=== PATIENT | female | born 1950 | race Caucasian/White ===

== ENCOUNTER 2025-02-24 08:05 | Day surgery (SDC) | payer MEDICARE, OTHER, SELFPAY ==
[2025-02-23 12:25] VITALS: BMI 28.2
--- NOTE | 2025-02-24 07:27 | EXP.HP ---
History of Present Illness *Admission Date: 02/24/25 *Reason for visit:: Personal history of adenomatous colon polyps *History of present illness: Mrs. Escalante is a 74-year-old female who is here for personal history of adenomatous colon polyps. The examination is deemed medically necessary for surveillance/screening colonoscopy. The patient has been seen, interviewed and examined prior to the procedure by both myself and the anesthesia provider. [facility] Disclaimer: The information contained in this section may have been updated after the patient was seen, as this information can be updated by other users. Medical History (Updated 02/24/25 @ 10:32 by Calvin Simon II, MD) Arthritis Spinal stenosis Cervical cancer Kidney stone Hyperlipidemia Hypertension Surgical History H/O blepharoplasty Hx of cataract surgery Hx of lithotripsy History of carpal tunnel surgery History of removal of ovarian cyst History of hysterectomy Family History Other Bladder cancer Diabetes Heart attack Heart valve disease Hypertension Social History (Updated 02/24/25 @ 08:47 by Zaki Lopez CRNA) Smoking Status: Never smoker alcohol intake: never substance use type: denies use current occupational status: retired Travel in the last 8 weeks?: None Have you lived/traveled outside [place] in past 30 days?: No Contact w/someone who lives/traveled outside [place] past 30 days?: No Exposure to someone with infectious disease in past 14 days?: No Do you have a fever (greater than 100.4 F or 38 C)?: No Have you tested positive for COVID-19?: No Exposed to someone with COVID-19 in past 14 days?: No Do you have a sore throat?: No Do you have a cough?: No Do you have any weakness?: No Are you experiencing any nausea/vomitting?: No Do you have any diarrhea?: No Are you experiencing any unusual bleeding?: No Do you have any muscle aches/pain?: No Do you have any abdominal pain?: No Are you experiencing loss of taste or smell?: No Review of Systems Review of Systems Review of systems (narrative): Negative *Cardiovascular Comments: Negative *Gastrointestinal Comments: Negative *Genitourinary Comments: Negative *Musculoskeletal Comments: Negative *Neurologic Comments: Negative Meds Home Medications and Allergies Home Medications ?Medication ?Instructions ?Recorded ?Confirmed ?Type sodium,potassium,mag sulfates 17.5 See Rx Instructions PO .COMPLEX 02/08/25 Rx gram-3.13 gram-1.6 gram oral soln #354 mL (Suprep Bowel Prep Kit) aspirin 81 mg capsule 81 mg PO DAILY 02/23/25 02/24/25 History atorvastatin 10 mg tablet 10 mg PO DAILY 02/23/25 02/24/25 History lisinopril 30 mg tablet 30 mg PO DAILY 02/23/25 02/24/25 History multivitamin 1 cap PO DAILY 02/23/25 02/24/25 History omega-3 fatty acids 2,000 mg PO BID 02/23/25 02/24/25 History psyllium husk 0.4 gram capsule 0 g PO DAILY 02/23/25 02/24/25 History (Fiber (psyllium husk)) New Prescriptions to Start Prescriptions: Allergies Allergy/AdvReac Type Severity Reaction Status Date / Time No Known Allergies Allergy Verified 02/24/25 08:28 Exam Data for Last 24 hours I & O for Last 24 hours: Intake & Output 02/21/25 02/22/25 02/23/25 02/24/25 23:59 23:59 23:59 23:59 Weight 135 lb *Routine HEENT Exam Head: Present normocephalic Eye: Present EOMI and PERRL ENT: Present mucous membranes moist *Routine Neck Exam Neck: Present supple *Routine Respiratory Exam Respiratory: Present CTA bilaterally *Routine Cardiovascular Exam Cardiovascular: Present RRR *Routine Abdominal Exam Abdominal: Present soft and normoactive bowel sounds; Absent tenderness *Routine Rectal Exam Rectal:: deferred *Routine Genitalia Exam Genitalia:: deferred *Routine Extremities Exam Extremities: Absent cyanosis, clubbing or edema *Routine Skin Exam Skin: Present warm; Absent rash *Routine Neurological Exam Neurological: Present alert and oriented X3 Assessment and Plan *Assessment and plan (1) Personal history of adenomatous and serrated colon polyps: Status: Acute Category: Medical Code(s): Z86.0101 - Personal history of adenomatous and serrated colon polyps Plan A/P: 1. Personal history of adenomatous colon polyps is the preprocedural diagnosis. The patient will be anesthetized/sedated using MAC sedation. The patient has been seen and examined. Cardiac and lung assessment prior to the examination is stable. Proceed with planned screening/surveillance colonoscopy.
[2025-02-24 08:32] VITALS: BP 133/76; PULSE 94; RESP 17; TEMP 36.3; O2SAT 97
--- NOTE | 2025-02-24 08:47 | P.PNANES_ITS ---
[facility] Disclaimer: The information contained in this section may have been updated after the patient was seen, as this information can be updated by other users. Medical History Arthritis Spinal stenosis Cervical cancer Kidney stone Hyperlipidemia Hypertension Surgical History H/O blepharoplasty Hx of cataract surgery Hx of lithotripsy History of carpal tunnel surgery History of removal of ovarian cyst History of hysterectomy Family History Other Bladder cancer Diabetes Heart attack Heart valve disease Hypertension Social History Smoking Status: Never smoker alcohol intake: never substance use type: denies use current occupational status: retired Travel in the last 8 weeks?: None [facility] Anesthesia Checklist Patient Identification Patient Identification: Arm Band Structural Data Admitted From: Home Planned Operative Procedure/s: Colonoscopy Consent for Planned Operative Procedure(s) Verified: Yes Verified Documents: Surgical Consent and History and Physical NPO Status Verified Time NPO: 05:00 (finished prep) Additional verifications Anesthesia Reactions: No Airway Assessment Mallampati Score:: Class II C-Spine Mobility Assessed: Yes TMJ Mobility Assessed: Yes Dentition: Good Dentition Neurological Assessment Level of Consciousness: Awake, Alert and Appropriate Anesthesia Plan Anesthesia Risk discussed: Yes Anesthesia Plan: Verified ASA Class: II Anesthesia Type: MAC
[2025-02-24] MEDS: SODIUM PHOS/BIPHOSPHATE FLEET 133ML ENEMA 133 ML RC (08:51)
[2025-02-24] MEDS: LACTATED RINGERS 1000ML 1,000 ML 50 ML IV (08:53)
--- NOTE | 2025-02-24 10:33 | HMH.PROCNOTE ---
[facility] Procedure Note Date: 02/24/25 Time: 10:52 Procedure Note:: Colonoscopy Procedure Report: Colonoscopy with cold snare polypectomy. Endoscopist: Calvin Simon II, MD Referring physician: Ang Sánchez MD Date of Procedure: February 24, 2025 Equipment: Olympus 190 variable stiffness pediatric colonoscope Sedation: MAC sedation Indication: Mrs. Escalante is a 74-year-old female who is here for follow-up surveillance/screening colonoscopy secondary to a personal history of adenomatous colon polyps. Earlier on the screening she had a larger adenomatous polyp. She has always had adenomatous polyps removed and her last colonoscopy in February 2021 revealed 7 polyps which were removed. She was given 3-year surveillance interval. The patient reports no abdominal pain, weight loss, change in her bowel habits or rectal bleeding. She reports no family history of colon cancer. Procedure: Prior to the procedure, a history and physical exam was performed, and patient's medications and allergies were reviewed. The risks, benefits and alternatives of the sedation and procedure were discussed with the patient. All questions were answered and informed consent was obtained. The patient was brought to the procedure room. Patient identification and proposed procedure were verified by the physician and the nurse. The patient was placed in a left lateral decubitus position and the scope was passed under direct vision. Throughout the procedure, the patient's blood pressure, pulse, and oxygen saturations were monitored continuously. The colonoscopy was accomplished without difficulty. The patient tolerated the procedure well. Findings: On digital rectal examination there was normal rectal tone. There were no external hemorrhoids. The colonoscope was introduced through the anal canal to the rectum and advanced to the cecum. The ileocecal valve and appendiceal orifice were identified. The scope was advanced a short distance into the ileum which appeared grossly normal. The scope was then withdrawn into the colon. There were 6 diminutive polyps (ascending x 3 (3, 4 and 4 mm) and transverse x 3 (4, 4 and 6 mm)). These were all removed via cold snare polypectomy. The remaining cecum, ascending and transverse colon and mucosa were grossly normal. There were mildly scattered diverticuli throughout the descending and sigmoid colon (LEFT colon). The rectum itself was normal. Upon retroflexion within the rectum there were grade 2 internal hemorrhoids. The preparation was fair throughout with [place] Preparation Score of 7 out of 9. The cecal time was 15 minutes. Impression: 1. Diminutive colonic polyps x 6 2. Mild left-sided diverticulosis 3. Grade 2 internal hemorrhoids Plan: I will follow-up the polyp histology and recommend repeat surveillance colonoscopy again in 3 to 5 years based upon pathology. This will certainly be based upon her health and desire to continue preventive surveillance. I would recommend a fiber bowel regimen on a regular and daily basis.
[2025-02-24 10:56] VITALS: BP 123/66; PULSE 88; RESP 16; TEMP 36.1; O2SAT 97
[2025-02-24 11:06] VITALS: BP 106/71; PULSE 83; RESP 16; O2SAT 100
[2025-02-24 11:16] VITALS: BP 121/68; PULSE 74; RESP 18; O2SAT 100
[2025-02-24 11:26] VITALS: BP 113/69; PULSE 91; RESP 18; O2SAT 99
[2025-02-24 11:55] VITALS: BP 139/64; PULSE 80; RESP 18; TEMP 36.1; O2SAT 100
== END 2025-02-24 11:55 | disposition home or self-care (01) ==
PROVIDERS: PCP Internal Medicine; Visit Provider Internal Medicine Gastroenterology
PROC: 0DJD8ZZ Inspection of Lower Intestinal Tract, Via Natural or Artificial Opening Endoscopic (ICD-10-PCS; CPT 45378; principal; 2025-02-24 09:30)
DX: Z12.11 Encounter for screening for malignant neoplasm of colon (principal); Z86.0101 Personal history of adenomatous and serrated colon polyps; D12.2 Benign neoplasm of ascending colon; D12.3 Benign neoplasm of transverse colon; K57.30 Diverticulosis of large intestine without perforation or abscess without bleeding; K64.1 Second degree hemorrhoids; E78.5 Hyperlipidemia, unspecified; I10 Essential (primary) hypertension; Z79.899 Other long term (current) drug therapy; Z79.82 Long term (current) use of aspirin
CPT/HCPCS: 45385; 88305; J2003; J2704; J7120